=== PATIENT | female | born 1985 | race Caucasian/White ===

== ENCOUNTER 2018-08-29 17:45 | Outpatient (CLI) | payer OTHER | END 2018-08-29 20:35 | disposition home or self-care (01) | LOC: OBT 17:45 → L-D 17:46 → OBT 20:35 | DX: O26.843 Uterine size-date discrepancy, third trimester (principal); Z3A.38 38 weeks gestation of pregnancy | CPT/HCPCS: 76815; 76818; 76820 ==

== ENCOUNTER 2018-09-02 08:28 | Inpatient (IN) | payer OTHER ==
[2018-09-02] MEDS ORDERED: CARBOPROST 250 MCG INJ IM ×2 (09:00→17:30)
[2018-09-02] MEDS ORDERED: OXYTOCIN 30 UNITS/LR 500 ML IV ×2 (09:00→17:30)
[2018-09-02] MEDS ORDERED: MISOPROSTOL 200 MCG TAB PR ×2 (09:00→17:30)
[2018-09-02] MEDS ORDERED: METHYLERGONOVINE 0.2 MG INJ IM ×2 (09:00→17:30)
[2018-09-02 09:19] LABS: ADD MAN DIFF? NO
[2018-09-02] MEDS: LACTATED RINGER'S 1,000 ML IV ×3 (09:20→13:28)
[2018-09-02 09:25] LABS: WHITE BLOOD COUNT 8.6 10^3/ul (4.8-10.8)
[2018-09-02 09:25] LABS: BASOPHIL # 0.1 10^3/ul (0.0-0.1); BASOPHILS % 0.6 % (0.0-2.0); EOSINOPHILS # 0.1 10^3/ul (0.0-0.5); EOSINOPHILS % 1.3 % (0.0-7.0); HEMOGLOBIN 9.8 g/dl (12.0-16.0); LYMPHOCYTES # 1.1 10^3/ul (0.8-2.9); LYMPHOCYTES % 12.4 % (15.0-51.0); MEAN CORPUSCULAR HEMOGLOBIN 28.6 pg (29.0-33.0); MEAN CORPUSCULAR HGB CONC 31.6 g/dl (32.0-37.0); MEAN CORPUSCULAR VOLUME 90.4 fl (82.0-101.0); MEAN PLATELET VOLUME 12.4 fl (7.4-10.4); MONOCYTE # 0.7 10^3/ul (0.3-0.9); MONOCYTES % 8.6 % (0.0-11.0); NEUTROPHIL # 6.5 10^3/ul (1.6-7.5); NEUTROPHILS % 75.7 % (39.0-77.0); PLATELET COUNT 246 10^3/UL (140-415); RED BLOOD COUNT 3.43 10^6/ul (4.20-5.40); RED CELL DISTRIBUTION WIDTH 15.2 % (11.5-14.5)
[2018-09-02] MEDS: CITRIC ACID/NA CITRATE 30 ML CUP PO ×3 (09:30→13:26)
[2018-09-02 09:50] LABS: PARTIAL THROMBOPLASTIN TIME 26.6 Sec (23.0-35.0); PROTIME 12.3 Sec (11.9-14.9)
[2018-09-02 10:22] LABS: HEPATITIS B SURFACE ANTIGEN NEGATIVE (NEGATIVE)
[2018-09-02] MEDS ORDERED: morphine SULFATE/PF (10 MG/10 ML) INJ (12:04)
[2018-09-02] MEDS ORDERED: ONDANSETRON 4 MG INJ (12:16)
[2018-09-02] MEDS ORDERED: METOCLOPRAMIDE 10 MG INJ (12:16)
[2018-09-02] MEDS ORDERED: MIDAZOLAM 1 MG/ML 2 ML INJ ×3 (13:02→13:03)
[2018-09-02] MEDS ORDERED: OXYTOCIN 10 UNIT INJ ×2 (13:02→13:28)
[2018-09-02] MEDS: CEFAZOLIN 2 GM/50 ML (PMX) 50 ML IVPB (13:27)
[2018-09-02] MEDS ORDERED: HYDROmorphONE 0.5 MG/0.5 ML SYG IV (13:30)
[2018-09-02] MEDS ORDERED: ONDANSETRON 4 MG INJ IV (13:30)
[2018-09-02] MEDS ORDERED: ZOLPIDEM 5 MG TAB PO (13:30)
[2018-09-02] MEDS ORDERED: MIDAZOLAM 1 MG/ML 2 ML INJ IV (13:30)
[2018-09-02] MEDS ORDERED: MEPERIDINE 25 MG INJ IV (13:30)
[2018-09-02] MEDS ORDERED: NALBUPHINE HCL (10 MG/1 ML) INJ IV (13:30)
[2018-09-02] MEDS ORDERED: NALOXONE (0.4 MG/ML) INJ IV (13:30)
[2018-09-02] MEDS ORDERED: DIPHENHYDRAMINE 50 MG INJ IV ×2 (13:30)
[2018-09-02] MEDS: KETOROLAC 30 MG INJ IV ×2 (14:24→21:24)
[2018-09-02 14:30] LABS: AMPHETAMINE/METHAMPHETAMINE Negative (NEGATIVE); BARBITURATES Negative (NEGATIVE); CANNABINOIDS Negative (NEGATIVE); COCAINE Negative (NEGATIVE); OPIATES Negative (NEGATIVE)
[2018-09-02 14:34] LABS: BENZODIAZEPINES Positive (NEGATIVE)
[2018-09-02] MEDS: HYDROmorphONE 0.5 MG/0.5 ML SYG IV (14:38)
[2018-09-02] MEDS: OXYTOCIN 30 UNITS/LR 500 ML IV ×2 (15:08→18:05)
[2018-09-02] MEDS: ACETAMINOPHEN 1000MG/100ML IV 100 ML IVPB (15:30)
[2018-09-02 16:23] LABS: RAPID PLASMA REAGIN NONREACTIVE (NR)
[2018-09-02] MEDS: DEXTROSE 5%-LR 1,000 ML IV (17:12)
[2018-09-02] MEDS ORDERED: METHYLERGONOVINE 0.2 MG TAB PO (17:30)
[2018-09-02] MEDS ORDERED: MAGNESIUM HYDROXIDE 30ML CUP PO (17:30)
[2018-09-02] MEDS: LANOLIN HPA 1 PKT TOP (18:05)
[2018-09-02] MEDS: SENNA/DOCUSATE NA (8.6MG/50MG) TAB PO (21:00)
[2018-09-03] MEDS: LACTATED RINGER'S 1,000 ML IV ×2 (02:23→12:33)
[2018-09-03 06:54] LABS: ADD MAN DIFF? NO
[2018-09-03 06:59] LABS: ABNORMAL IP MESSAGE 1; BASOPHILS % 0.4 % (0.0-2.0); EOSINOPHILS % 0.4 % (0.0-7.0); HEMATOCRIT 26.2 % (37.0-47.0); HEMOGLOBIN 8.4 g/dl (12.0-16.0); LYMPHOCYTES # 0.6 10^3/ul (0.8-2.9); LYMPHOCYTES % 6.1 % (15.0-51.0); MEAN CORPUSCULAR HEMOGLOBIN 28.5 pg (29.0-33.0); MEAN CORPUSCULAR HGB CONC 32.1 g/dl (32.0-37.0); MEAN CORPUSCULAR VOLUME 88.8 fl (82.0-101.0); MONOCYTE # 0.7 10^3/ul (0.3-0.9); MONOCYTES % 7.2 % (0.0-11.0); NEUTROPHIL # 8.1 10^3/ul (1.6-7.5); NEUTROPHILS % 85.2 % (39.0-77.0); PLATELET COUNT 200 10^3/UL (140-415); RED BLOOD COUNT 2.95 10^6/ul (4.20-5.40); RED CELL DISTRIBUTION WIDTH 15.4 % (11.5-14.5)
[2018-09-03 06:59] LABS: WHITE BLOOD COUNT 9.5 10^3/ul (4.8-10.8)
[2018-09-03 07:03] LABS: POSITIVE DIFF @See below
[2018-09-03] MEDS: SENNA/DOCUSATE NA (8.6MG/50MG) TAB PO ×2 (09:53→21:11)
[2018-09-03] MEDS: KETOROLAC 30 MG INJ IV (09:53)
[2018-09-03] MEDS: ENOXAPARIN 40 MG/0.4 ML SYG SC (09:56)
[2018-09-03] MEDS: DEXTROSE 5%-LR 1,000 ML IV (12:34)
[2018-09-03] MEDS: IBUPROFEN 800 MG TAB PO ×2 (14:00→22:10)
[2018-09-03] MEDS: HYDROCODONE/APAP (5/325) TAB NGT (16:44)
[2018-09-03] MEDS: HYDROCODONE/APAP (5/325) TAB GTB (22:10)
[2018-09-04] MEDS: HYDROCODONE/APAP (5/325) TAB GTB ×3 (05:41→21:47)
[2018-09-04] MEDS: IBUPROFEN 800 MG TAB PO ×3 (05:41→18:29)
[2018-09-04] MEDS: SENNA/DOCUSATE NA (8.6MG/50MG) TAB PO ×2 (09:19→21:47)
[2018-09-04] MEDS: ENOXAPARIN 40 MG/0.4 ML SYG SC (09:20)
[2018-09-04] MEDS ORDERED: PETROLATUM 5 GM OINT TOP (22:22)
[2018-09-05] MEDS: HYDROCODONE/APAP (5/325) TAB GTB ×2 (05:58→14:00)
[2018-09-05] MEDS: IBUPROFEN 800 MG TAB PO ×2 (05:58→14:00)
[2018-09-05] MEDS ORDERED: DIPHTH/TET/ACEL PERTUSS (ADULT) 0.5 ML VIAL IM* (09:00)
[2018-09-05] MEDS: MEASLES,MUMPS,RUBELLA VACCINE INJ SC* (09:00)
[2018-09-05] MEDS: SENNA/DOCUSATE NA (8.6MG/50MG) TAB PO (09:18)
[2018-09-05] MEDS: ENOXAPARIN 40 MG/0.4 ML SYG SC (09:18)
[2018-09-05] MEDS: HYDROCODONE/APAP (5/325) TAB NGT (12:15)
[2018-09-05] MEDS: DIPHTH/TET/ACEL PERTUSS (ADULT) 0.5 ML VIAL IM* (12:27)
== END 2018-09-05 14:43 | disposition home or self-care (01) | DRG 787 ==
LOC: L-D 08:28 → PP1 16:50
PROVIDERS: Obstetrics & Gynecology
PROC: 10D00Z1 Extraction of Products of Conception, Low, Open Approach (ICD-10-PCS; principal; 2018-09-02)
DX: O32.1XX0 Maternal care for breech presentation, not applicable or unspecified (principal); O99.12 Other diseases of the blood and blood-forming organs and certain disorders involving the immune mechanism complicating childbirth; D68.51 Activated protein C resistance; O36.5930 Maternal care for other known or suspected poor fetal growth, third trimester, not applicable or unspecified; O99.334 Smoking (tobacco) complicating childbirth; F17.200 Nicotine dependence, unspecified, uncomplicated; Z3A.39 39 weeks gestation of pregnancy; Z37.0 Single live birth
CPT/HCPCS: 62322; 76815; 80307; 85025; 85610; 85730; 86592; 86850; 86900; 86901; 87340; 99464